=== PATIENT | female | born 1980 | race Caucasian/White ===

== ENCOUNTER 2022-12-24 10:41 | Inpatient (IN) | payer BC ==
[2022-12-24] MEDS ORDERED: Sodium Chloride 0.9% 10 ML Syringe FLUSH PRN (11:21)
[2022-12-24] MEDS ORDERED: Ondansetron 4 MG/2 ML SDV IVPUSH ONE (11:53)
[2022-12-24] MEDS ORDERED: Lidocaine 2% Jelly 10 ML Urojet MUCMEM ONE (11:53)
[2022-12-24] MEDS ORDERED: Morphine 4 MG/ML VIAL IVPUSH ONE (11:53)
[2022-12-24] MEDS ORDERED: Sodium Chloride 0.9% 1,000 ML IV SCH (12:00)
[2022-12-24] MEDS ORDERED: Lidocaine 2% Jelly 5 ML Urojet MUCMEM ONE (12:05)
[2022-12-24] MEDS ORDERED: Ondansetron 4 MG/2 ML SDV ONE (12:07)
[2022-12-24] MEDS ORDERED: Morphine 4 MG/ML VIAL ONE (12:07)
[2022-12-24] MEDS ORDERED: Lidocaine 2% Jelly 5 ML Urojet ONE (12:08)
[2022-12-24] MEDS: Lactated Ringers 1,000 ML IV SCH ×2 (13:43→23:45)
[2022-12-24] MEDS: Morphine 4 MG/ML VIAL IVPUSH PRN ×2 (14:40→23:50)
[2022-12-24] MEDS ORDERED: Acetaminophen 325 MG Tab PO PRN (21:09)
[2022-12-24] MEDS ORDERED: Acetaminophen 325 MG Tab ONE (21:13)
[2022-12-24] MEDS ORDERED: Benzocaine/Cetylpyridinium/Menthol Lozenge MUCMEM PRN (23:33)
[2022-12-25] MEDS ORDERED: Benzocaine/Cetylpyridinium/Menthol Lozenge MUCMEM SCH (06:00)
[2022-12-25] MEDS: Morphine 4 MG/ML VIAL IVPUSH PRN (06:37)
[2022-12-25] MEDS: Lactated Ringers 1,000 ML IV SCH ×2 (09:46→20:00)
[2022-12-25] MEDS ORDERED: Ketorolac 60 MG/2 ML SDV IVPUSH PRN (09:59)
[2022-12-25] MEDS: Ketorolac 30 MG/ML SDV IVPUSH PRN ×2 (10:14→20:18)
[2022-12-25] MEDS: MENTHOL PO PRN ×3 (10:25→17:39)
[2022-12-25] MEDS ORDERED: LORazepam 2 MG/ML SDV IVPUSH ONE (12:30)
[2022-12-25] MEDS ORDERED: Orphenadrine 60 MG/2 ML Inj IM ONE (12:30)
[2022-12-25] MEDS ORDERED: Orphenadrine 60 MG/2 ML Inj IV PRN (18:37)
[2022-12-26] MEDS: MENTHOL PO PRN ×2 (02:54→06:41)
[2022-12-26] MEDS: Lactated Ringers 1,000 ML IV SCH (06:41)
[2022-12-27 11:28] VITALS: BP 129/89; PULSE 65
== END 2022-12-27 11:27 | disposition home or self-care (01) | DRG 247 ==
LOC: LB.ED 10:41 → LB.MS 13:10 → EDBD 13:10
PROVIDERS: ADMIT Surgery; ATTEND Surgery
PROC: 0D9670Z Drainage of Stomach with Drainage Device, Via Natural or Artificial Opening (ICD-10-PCS; principal; 2022-12-24)
DX: K56.609 Unspecified intestinal obstruction, unspecified as to partial versus complete obstruction (principal); K21.9 Gastro-esophageal reflux disease without esophagitis
CPT/HCPCS: 36415; 71045; 80053; 81003; 83605; 83690; 83735; 84100; 85027; 86140; 96361; 96374; 96375; 99285-25; A9270-GY; J1885; J2060; J2270; J2360; J2405; J7030; J7120; U0002